=== PATIENT | female | born 1975 | race Caucasian/White ===

== ENCOUNTER 2019-12-05 10:18 | Observation (INO) | payer OTHER, SELFPAY ==
[2019-12-05 10:17] VITALS: BP 146/92; PULSE 100; RESP 16; TEMP 37; O2SAT 100
--- NOTE | 2019-12-05 10:20 | PC.NURSE ---
REPORT TO VALERI HYAES IN OB TRIAGE
[2019-12-05 10:25] VITALS: BMI 38.9
[2019-12-05 10:46] VITALS: BP 117/53; PULSE 99
[2019-12-05 11:01] VITALS: BP 110/79; PULSE 94
[2019-12-05 11:16] VITALS: BP 106/49; PULSE 95
--- NOTE | 2019-12-05 12:04 | OBADM ---
This patient, Candis Briseno, admitted to the OB room [facility] for observation. Patient/family oriented to hospital policies and general routines including ID bracelet, bed and alarms, visiting hours, pain management, procedures, bathroom and other care routines, personal items, smoking policy, room service/diet, and visiting hours. Patient/Family are encouraged to report perceived risks to care and to ask questions if they do not understand what they are told or what they should do.
--- NOTE | 2019-12-07 12:15 | PM.OBTRLD ---
OB - Triage/Final Diagnosis Final Diagnosis (1) Nausea and vomiting during : Code(s): O21.9 - Vomiting of , unspecified Status: Acute
== END 2019-12-05 11:40 ==
PROVIDERS: Admitting Provider Obstetrics & Gynecology; PCP Internal Medicine; Visit Provider Obstetrics & Gynecology
DX: O21.2 Late vomiting of pregnancy (principal); Z3A.24 24 weeks gestation of pregnancy
CPT/HCPCS: G0378; G0379